=== PATIENT | male | born 1980 | race Two or more races ===

== ENCOUNTER 2020-01-10 13:12 | Emergency (ER) | payer MEDICAID ==
[~2020-01-10] VITALS: Ht 167.6 cm; Wt 68.0 kg
[2020-01-10 13:46] VITALS: BP 133/89
[2020-01-10] MEDS ORDERED: Ketorolac 30mg Inj IV ONE (14:00)
[2020-01-10] MEDS ORDERED: Metoclopramide 10mg/2ml Inj IVP ONE (14:00)
--- NOTE | 2020-01-10 14:05 | Emergency Room Report ---
History of Present Illness General Chief Complaint: Headache Source: Patient Present Illness HPI 39 YO male presents to the ED c/o 08/05 in severity HERCULES with fevers and nonbloody vomitus x 3 days. Pt. reports episodes of chills and dizziness after vomiting. Pt. denies constipation or diarrhea. He denies abdominal Tenderness. He reports taking 2 tylenol [employer]. Pt. reports he has been drinking a lot of Gatorade in an attempt to overcome his symptoms. he denies ill contacts with similar symptoms. Pt. reports similar symptoms earlier this year in June that lasted 2 weeks before resolving. Pt. reports waking up with night sweat 2 nights ago. Pt. denies pmhx. he denies recent travel. He denies vertigo. He denies visual changes or LOC. He denies paresthesias or weakness. He denies CP, palpitations or SOB. He denies neck pain or stiffness. Allergies: Coded Allergies: No Known Allergies (Unverified , 01/10/20) COVID-19 Screening Contact w/high risk pt: No Experienced COVID-19 symptoms?: No COVID-19 Testing performed [employer]: No Patient History Past Medical History: see triage record Past Surgical History: none Pertinent Family History: none Reviewed Nursing Documentation: PMH: Agreed; PSxH: Agreed Nursing Documentation-PMH Past Medical History: No Stated History Review of Systems All Other Systems: negative except mentioned in HPI Physical Exam Vital Signs Date Time Temp Pulse Resp B/P (MAP) Pulse Ox O2 Delivery O2 Flow Rate FiO2 01/10/20 13:15 98.4 81 19 133/89 (104) 95 Room Air Sp02 EP Interpretation: reviewed, normal General Appearance: no apparent distress, alert, GCS 15, non-toxic Head: normocephalic, atraumatic Eyes: bilateral eye normal inspection, bilateral eye PERRL, bilateral eye other - no photophobia ENT: hearing grossly normal, normal voice, uvula midline, moist mucus membranes Neck: full range of motion, no meningismus, no bony tend Respiratory: chest non-tender, lungs clear, normal breath sounds, speaking full sentences Cardiovascular #1: regular rate, rhythm, normal capillary refill Gastrointestinal: normal bowel sounds, non tender, soft, non-distended, no guarding Musculoskeletal: back normal, normal range of motion, gait/station normal, non- tender Neurologic: alert, motor strength/tone normal, oriented x3, sensory intact, responsive, speech normal, normal gait, normal inspection, no focal defects Psychiatric: judgement/insight normal Skin: no rash, normal color Medical Decision Making PA Attestation Dr. Palomares is my supervising Physician whom patient management has been discussed with. Diagnostic Impression: Primary Impression: Headache Qualified Codes: R51.9 - Headache, unspecified Additional Impressions: Vomiting Qualified Codes: R11.10 - Vomiting, unspecified Hypokalemia ER Course 39 YO male presents to the ED c/o 08/05 in severity HERCULES with fevers and nonbloody vomitus x 3 days. Pt. reports episodes of chills and dizziness after vomiting. Pt. denies constipation or diarrhea. He denies abdominal Tenderness. He reports taking 2 tylenol [employer]. Pt. reports he has been drinking a lot of Gatorade in an attempt to overcome his symptoms. he denies ill contacts with similar symptoms. Pt. reports similar symptoms earlier this year in June that lasted 2 weeks before resolving. Pt. reports waking up with night sweat 2 nights ago. Pt. denies pmhx. he denies recent travel. He denies vertigo. He denies visual changes or LOC. He denies paresthesias or weakness. He denies CP, palpitations or SOB. He denies neck pain or stiffness. Ddx considered but are not limited to GE, colitis, acute appy, SBO, Cyclical Vomiting secondary to THC, Cardiac arrhythmia, migraine, intracranial pathology. Vital signs: pt. is afebrile, H&PE are most consistent with GE most likely viral in etiology, no evidence to suggest acute abdomen on physical exam. ORDERS: -accucheck: 126 - CBC: WNL -BMP: mildly low potassium at 3.4 -Lipase: WNL ED INTERVENTIONS: -1000 NS iv hydration, -Reglan 10mg IV -Pepcid PO --Pt. reports his symptoms have completely resolved and he feels much better. -I do not identify an emergent condition at this time. With current presentatio n, pt. is stable for close outpatient follow up and conservative treatment. D/w pt. to return promptly to ED with worsening or new symptoms.- Pt. verbalizes' understanding and agreement with proposed treatment plan. DISCHARGE: At this time pt. is stable for d/c to home. Will provide printed patient care instructions, and any necessary prescriptions. Care plan and follow up instructions have been discussed with the patient prior to discharge. Labs Test 01/10/20 13:37 01/10/20 13:40 POC Whole Blood Glucose 128 MG/DL (74-106) White Blood Count 9.4 K/UL (4.8-10.8) Red Blood Count 4.97 M/UL (4.70-6.10) Hemoglobin 15.9 G/DL (14.2-18.0) Hematocrit 44.5 % (42.0-52.0) Mean Corpuscular Volume 90 FL (80-99) Mean Corpuscular Hemoglobin 31.9 PG (27.0-31.0) Mean Corpuscular Hemoglobin Concent 35.6 G/DL (32.0-36.0) Red Cell Distribution Width 12.0 % (11.6-14.8) Platelet Count 288 K/UL (150-450) Mean Platelet Volume 6.5 FL (6.5-10.1) Neutrophils (%) (Auto) 66.8 % (45.0-75.0) Lymphocytes (%) (Auto) 23.1 % (20.0-45.0) Monocytes (%) (Auto) 6.3 % (1.0-10.0) Eosinophils (%) (Auto) 2.2 % (0.0-3.0) Basophils (%) (Auto) 1.6 % (0.0-2.0) Sodium Level 139 MMOL/L (136-145) Potassium Level 3.4 MMOL/L (3.5-5.1) Chloride Level 100 MMOL/L (98-107) Carbon Dioxide Level 29 MMOL/L (21-32) Anion Gap 10 mmol/L (5-15) Blood Urea Nitrogen 12 mg/dL (7-18) Creatinine 0.9 MG/DL (0.55-1.30) Estimat Glomerular Filtration Rate > 60 mL/min (>60) Glucose Level 119 MG/DL (74-106) Calcium Level 8.6 MG/DL (8.5-10.1) EKG Diagnostic Results Troponin ordered: No EKG Time: 13:37 Rate: normal - 78 bpm Rhythm: NSR ST Segments: no acute changes Other Impression non-specific T wave changes in leads 2 and AVF. ASA given to the pt in ED: No PA Scribe Text This Interpretation was scribed by AGUSTIN Silva. Last Vital Signs Date Time Temp Pulse Resp B/P (MAP) Pulse Ox O2 Delivery O2 Flow Rate FiO2 01/10/20 13:46 98.4 19 133/89 95 Room Air 01/10/20 13:15 81 Status: improved Disposition: HOME, SELF-CARE Condition: Stable Scripts Famotidine* (Pepcid 20mg tablet*) 20 Mg Tablet 20 MG ORAL TWICE A DAY for Gerd for 7 Days, #14 TAB 0 Refills Prov: Romi Silva 01/10/20 Aspirin/Acetaminophen/Caffeine (EXCEDRIN MIGRAINE GELTAB) 1 Each Tablet 2 EACH PO Q6HR, #20 TAB Prov: Romi Silva 01/10/20 Ondansetron Odt* (ZOFRAN ODT*) 4 Mg Tab.rapdis 4 MG BC EVERY 6 HOURS PRN for Nausea & Vomiting, #10 TAB 0 Refills Prov: Romi Silva 01/10/20 Referrals: [facility],REFERRING (PCP) [facility] Patient Instructions: Hypokalemia, Nausea and Vomiting, Adult Additional Instructions: Take medications as directed. Follow up with a Primary Care Provider in 3-5 days, even if your symptoms have resolved. --Please review list of primary care clinics, if you do not already have a primary care provider Return sooner to ED if new symptoms occur, or current symptoms become worse. - Please note that this Emergency Department Report was dictated using [employer] storage attendant technology software, occasionally this can lead to erroneous entry secondary to interpretation by the dictation equipment. Romi Silva Jan 10, 2020 14:05
[2020-01-10 14:07] LABS: BASOPHILS % (AUTO) 1.6 % (0.0-2.0); EOSINOPHILS % (AUTO) 2.2 % (0.0-3.0); HEMATOCRIT 44.5 % (42.0-52.0); HEMOGLOBIN 15.9 G/DL (14.2-18.0); LYMPHOCYTES % (AUTO) 23.1 % (20.0-45.0); MEAN CORPUSCULAR VOLUME 90 FL (80-99); MONOCYTES % (AUTO) 6.3 % (1.0-10.0); NEUTROPHILS % (AUTO) 66.8 % (45.0-75.0); PLATELET COUNT 288 K/UL (150-450); RED BLOOD COUNT 4.97 M/UL (4.70-6.10); WHITE BLOOD COUNT 9.4 K/UL (4.8-10.8)
[2020-01-10 14:38] LABS: ANION GAP 10 mmol/L (5-15); BLOOD UREA NITROGEN 12 mg/dL (7-18); CALCIUM 8.6 MG/DL (8.5-10.1); CARBON DIOXIDE 29 MMOL/L (21-32); CHLORIDE 100 MMOL/L (98-107); CREATININE 0.9 MG/DL (0.55-1.30); POTASSIUM 3.4 MMOL/L (3.5-5.1); SODIUM 139 MMOL/L (136-145)
--- NOTE | 2020-01-10 14:50 | NUR ---
ED Nurse Note: Pt ambulated to ED c/o dizziness, headache and hot flushes x3 days ago. Pt also reports excessive sweating yesterday. Pt took Tylenol at 0900 today. Pt is AOx4 calm and cooperative to pain, VSS, on RA, afebrile on triage.
[2020-01-10] MEDS ORDERED: ONDANSETRON ODT4 MG BC (15:25)
[2020-01-10] MEDS ORDERED: FAMOTIDINE20 MG ORAL (15:25)
[2020-01-10] MEDS ORDERED: EXCEDRIN MIGRA1 EACH PO (15:25)
[2020-01-10 15:40] VITALS: BP 140/86
--- NOTE | 2020-01-10 15:40 | NUR ---
ER DISCHARGE NOTE: Patient is cleared to be discharged per ERPA, pt is aox4, on room air, with stable vital signs. pt was given dc and prescription instructions, pt was able to verbalize understanding, pt id band and iv site removed without complications. pt is able to ambulate with steady gait. pt took all belongings.
== END 2020-01-10 15:40 | disposition home or self-care (01) ==
LOC: EMR 13:33
DX: R51.9 Headache, unspecified (principal); R11.10 Vomiting, unspecified; E87.6 Hypokalemia
CPT/HCPCS: 36415; 80048; 82962; 85025; 93005; 96361; 96374; 96375; J1885; J2765; J7030; S0028; Z7502; 99284; J8499